=== PATIENT | female | born 1955 | race Caucasian/White ===

== ENCOUNTER 2024-07-07 17:45 | Emergency (ER) | payer BC ==
[~2024-07-07] VITALS: Ht 160 cm; Wt 61.2 kg
[2024-07-07] MEDS: ACETAMINOPHEN ES 500 MG TABLET PO ONE (18:30)
[2024-07-07] MEDS: TDAP [DIPH/PERTUSSIS/TET] 0.5 ML VIAL IM ONE (18:30)
[2024-07-07] MEDS ORDERED: TDAP [DIPH/PERTUSSIS/TET] 0.5 ML VIAL IM ONE (18:58)
[2024-07-07] MEDS ORDERED: ACETAMINOPHEN ES 500 MG TABLET ONE (18:58)
[2024-07-07 20:37] VITALS: BP 135/74; TEMP 98; O2SAT 100
== END 2024-07-07 20:38 | disposition home or self-care (01) ==
LOC: ER 17:48
DX: S01.01XA Laceration without foreign body of scalp, initial encounter (principal); R51.9 Headache, unspecified; M79.641 Pain in right hand; E11.9 Type 2 diabetes mellitus without complications; I10 Essential (primary) hypertension; W01.198A Fall on same level from slipping, tripping and stumbling with subsequent striking against other object, initial encounter; Y93.89 Activity, other specified; Y92.89 Other specified places as the place of occurrence of the external cause; Y99.8 Other external cause status
CPT/HCPCS: 12002; 70450; 73060; 90471; 90715; 99285; A6403

== ENCOUNTER 2024-07-26 11:14 | Emergency (ER) | payer BC ==
[~2024-07-26] VITALS: Ht 152.4 cm; Wt 59.0 kg
[2024-07-26 11:25] VITALS: BP 147/76; TEMP 97.8
[2024-07-26 11:56] VITALS: O2SAT 100
== END 2024-07-26 11:58 | disposition home or self-care (01) ==
LOC: ER 11:21
DX: S01.01XD Laceration without foreign body of scalp, subsequent encounter (principal); Z48.02 Encounter for removal of sutures; I12.9 Hypertensive chronic kidney disease with stage 1 through stage 4 chronic kidney disease, or unspecified chronic kidney disease; E11.22 Type 2 diabetes mellitus with diabetic chronic kidney disease; N18.9 Chronic kidney disease, unspecified; X58.XXXD Exposure to other specified factors, subsequent encounter